=== PATIENT | male | born 1975 | race Caucasian/White ===

== ENCOUNTER → 2016-11-05 | Outpatient (CLI) | payer BC | LOC: MW.CHPM 10:33 | PROVIDERS: ATTEND Anesthesiology | DX: Z51.81 Encounter for therapeutic drug level monitoring (principal); Z79.891 Long term (current) use of opiate analgesic | CPT/HCPCS: 80305 ==

== ENCOUNTER 2017-07-09 11:44 | Emergency (ER) | payer BC ==
[2017-07-09] MEDS ORDERED: Sodium Chloride 0.9% 10 ML Syringe FLUSH PRN (12:30)
[2017-07-09] MEDS ORDERED: Sodium Chloride 0.9% 2.5 ML Syringe FLUSH PRN (12:30)
[2017-07-09] MEDS ORDERED: Ketorolac 30 MG/ML SDV IVPUSH ONE (12:30)
--- NOTE | 2017-07-09 12:41 | EDM.PDOC ---
ED HPI GENERAL MEDICAL PROBLEM - General Chief Complaint: Genitourinary Problem Stated Complaint: RIGHT LOWER BACK PAIN Time Seen by Provider: 07/09/17 12:20 Source of Information: Reports: Patient History Limitations: Reports: No Limitations - History of Present Illness INITIAL COMMENTS - FREE TEXT/NARRATIVE: HISTORY AND PHYSICAL: History of present illness: [He comes to the emergency room complaining of right-sided low back pain. He has a long history of chronic low back pain and 8 previous surgeries to his spine. He has a spinal nerve stimulator and the battery pack is located to his right low back. Pain began on Friday and he increased his stimulator without relief of symptoms. The pain woke him up suddenly at 2 AM this morning and has continued throughout today. The pain is constant and is radiating from his right low back around to his right lower quadrant. He rates the pain at a consistent 7-8 out of 10. He is under the care of Dr. Gudino for pain management. He denies nausea and vomiting. He's noticed cloudiness to his urine but no blood. He does not have any burning with urination or urinary frequency. He's had some loose stools over the past couple of days as well as a gurgling in his abdomen but no significant pain. ] Review of systems: As per history of present illness and below otherwise all systems reviewed and negative. Past medical history: As per history of present illness and as reviewed below otherwise noncontributory. Surgical history: As per history of present illness and as reviewed below otherwise noncontributory. Social history: No reported history of drug or alcohol abuse. Family history: As per history of present illness and as reviewed below otherwise noncontributory. Physical exam: HEENT: Atraumatic, normocephalic. Lungs: Clear to auscultation, breath sounds equal bilaterally. Heart: S1S2, regular rate and rhythm. Abdomen: Bowel sounds are normoactive throughout. Soft, nondistended, nontender. No masses guarding or rebound. Is tender with palpation over right flank. Pelvis: Stable nontender. Genitourinary: Deferred. Rectal: Deferred. Extremities: Atraumatic, negative for cords or calf pain. Neurovascular unremarkable. Neuro: Awake, alert, oriented. Motor and sensory unremarkable throughout. Exam nonfocal. Diagnostics: [CBC, CMP, urinalysis, CT abdomen and pelvis with contrast] Therapeutics: [Toradol 30 mg IV] Impression: [Right low back pain] Plan: [White blood count 14.32, urinalysis shows glucose in 0-2 red blood cells and 0- 1 white blood cells. CMP is unremarkable. CT abdomen and pelvis shows no acute findings. Recommend that patient follow up with Dr. Gudino regarding his right low back pain, stomach virus may be causing his loose stools as well as his elevated white count. Recommend he push fluids and follow-up with his local PCP. Strict return precautions are reviewed. He is in agreement with today's plan.] Definitive disposition and diagnosis as appropriate pending reevaluation and review of above. Right Flank Pain Score (Numeric/FACES): 8 - Related Data Allergies Allergy/AdvReac Type Severity Reaction Status Date / Time No Known Allergies Allergy Verified 07/09/17 11:58 Home Meds: Home Meds Hydrocodone/Acetaminophen [Hydrocodon-Acetaminophn 10-325] 1 tab PO Q6H PRN [History] Albuterol [Proair HFA] 1 puff INH Q4H PRN 05/16/15 [History] amLODIPine [Norvasc] 10 mg PO DAILY 05/16/15 [History] ClonazePAM [KlonoPIN] 1 tab PO TID PRN 09/18/15 [History] Past Medical History HEENT History: Reports: None Cardiovascular History: Reports: Hypertension Respiratory History: Reports: Asthma Genitourinary History: Reports: None Musculoskeletal History: Reports: Back Pain, Chronic Neurological History: Reports: Other (See Below) Other Neuro History: spinal cord stimulator Psychiatric History: Reports: Depression Endocrine/Metabolic History: Reports: None Hematologic History: Reports: None Immunologic History: Reports: None Oncologic (Cancer) History: Reports: None Dermatologic History: Reports: None - Infectious Disease History Infectious Disease History: Reports: Chicken Pox - Past Surgical History HEENT Surgical History: Reports: Tonsillectomy GI Surgical History: Reports: Appendectomy Musculoskeletal Surgical History: Reports: Arthroscopic Knee Social & Family History - Family History Family Medical History: Noncontributory Cardiac: Reports: CAD Endocrine/Metabolic: Reports: Diabetes, Type I - Tobacco Use Smoking Status *Q: Never Smoker Years of Tobacco use: 20 Packs/Tins Daily: 1 Second Hand Smoke Exposure: No - Caffeine Use Caffeine Use: Reports: Soda - Recreational Drug Use Recreational Drug Use: No ED ROS GENERAL - Review of Systems Review Of Systems: ROS reveals no pertinent complaints other than HPI. ED EXAM, RENAL/ - Physical Exam Exam: See Below Course - Vital Signs Last Recorded V/S: Last Vital Signs Temp 98.1 F 07/09/17 14:43 Pulse 55 L 07/09/17 14:43 Resp 18 07/09/17 14:43 BP 155/100 H 07/09/17 14:43 Pulse Ox 98 07/09/17 14:43 - Orders/Labs/Meds Orders: Active Orders 24 hr Category Date Time Status Sodium Chloride 0.9% [Saline Flush] Med 07/09/17 12:30 Active 10 ml FLUSH ASDIRECTED PRN Sodium Chloride 0.9% [Saline Flush] Med 07/09/17 12:30 Active 2.5 ml FLUSH ASDIRECTED PRN Saline Lock Insert [OM.PC] Stat Oth 07/09/17 12:30 Ordered Medication Orders Sodium Chloride (Saline Flush) 10 ml FLUSH ASDIRECTED PRN PRN Reason: Keep Vein Open Sodium Chloride (Saline Flush) 2.5 ml FLUSH ASDIRECTED PRN PRN Reason: Keep Vein Open Labs: Laboratory Tests 07/09/17 07/09/17 07/09/17 Range/Units 11:53 12:43 12:43 WBC 14.32 H (4.0-11.0) K/uL RBC 4.62 (4.50-5.90) M/uL Hgb 14.4 (13.0-17.0) g/dL Hct 40.6 (38.0-50.0) % MCV 87.9 (80.0-98.0) fL MCH 31.2 (27.0-32.0) pg MCHC 35.5 (31.0-37.0) g/dL RDW Std Deviation 38.7 (28.0-62.0) fl RDW Coeff of Anel 12 (11.0-15.0) % Plt Count 238 (150-400) K/uL MPV 9.50 (7.40-12.00) fL Neut % (Auto) 81.4 H (48.0-80.0) % Lymph % (Auto) 9.9 L (16.0-40.0) % [place] % (Auto) 6.2 (0.0-15.0) % Eos % (Auto) 2.2 (0.0-7.0) % Baso % (Auto) 0.3 (0.0-1.5) % Neut # (Auto) 11.7 H (1.4-5.7) K/uL Lymph # (Auto) 1.4 (0.6-2.4) K/uL [place] # (Auto) 0.9 H (0.0-0.8) K/uL Eos # (Auto) 0.3 (0.0-0.7) K/uL Baso # (Auto) 0.0 (0.0-0.1) K/uL Sodium 141 (136-146) mmol/L Potassium 3.5 (3.5-5.1) mmol/L Chloride 108 (98-110) mmol/L Carbon Dioxide 24 (21-31) mmol/L BUN 8 (6.0-23.0) mg/dL Creatinine 0.7 (0.6-1.5) mg/dL Est Cr Clr Drug Dosing 138.88 mL/min Estimated GFR (MDRD) > 60.0 ml/min Glucose 103 (60-110) mg/dL Calcium 8.9 (8.8-10.8) mg/dL Total Bilirubin 1.8 H (0.1-1.5) mg/dL AST 11 (5-40) IU/L ALT 16 (8-54) IU/L Alkaline Phosphatase 70 (40-150) Total Protein 6.5 (6.0-8.0) g/dL Albumin 4.3 (3.5-5.0) g/dL Globulin 2.2 (2.0-3.5) g/dL Albumin/Globulin Ratio 2.0 (1.3-2.8) Urine Color YELLOW Urine Appearance CLOUDY Urine pH 7.0 (5.0-8.0) Ur Specific Jeffrey 1.020 (1.001-1.035) Urine Protein NEGATIVE (NEGATIVE) mg/dL Urine Glucose (UA) 100 H (NEGATIVE) mg/dL Urine Ketones NEGATIVE (NEGATIVE) mg/dL Urine Occult Blood NEGATIVE (NEGATIVE) Urine Nitrite NEGATIVE (NEGATIVE) Urine Bilirubin NEGATIVE (NEGATIVE) Urine Urobilinogen 0.2 (<2.0) EU/dL Ur Leukocyte Esterase NEGATIVE (NEGATIVE) Urine RBC 0-2 (0-2/HPF) Urine WBC 0-1 (0-5/HPF) Ur Epithelial Cells RARE (NONE-FEW) Amorphous Sediment HEAVY (NEGATIVE) Urine Bacteria RARE (NEGATIVE) Urine Mucus LIGHT (NONE-MOD) Meds: Medications Generic Name Dose Route Start Last Admin Trade Name Freq PRN Reason Stop Dose Admin Sodium Chloride 10 ml 07/09/17 12:30 Saline Flush FLUSH ASDIRECTED PRN Keep Vein Open Sodium Chloride 2.5 ml 07/09/17 12:30 Saline Flush FLUSH ASDIRECTED PRN Keep Vein Open Discontinued Medications Generic Name Dose Route Start Last Admin Trade Name Freq PRN Reason Stop Dose Admin Iopamidol 100 ml 07/09/17 14:04 07/09/17 14:05 Isovue Multipack-370 (76%) IVPUSH 07/09/17 14:05 90 ml ONETIME STA Administration Ketorolac Tromethamine 30 mg 07/09/17 12:30 07/09/17 12:41 Toradol IVPUSH 07/09/17 12:31 30 mg ONETIME ONE Administration Departure - Departure Time of Disposition: 14:40 Disposition: Home, Self-Care 01 Condition: Good Clinical Impression: Low back pain - Discharge Information Instructions: Back Pain, Adult Referrals: Luis Singh DO [Primary Care Provider] - Forms: ED Department Discharge Additional Instructions: The following information is given to patients seen in the emergency department who are being discharged to home. This information is to outline your options for follow-up care. We provide all patients seen in our emergency department with a follow-up referral. The need for follow-up, as well as the timing and circumstances, are variable depending upon the specifics of your emergency department visit. If you don't have a primary care physician on staff, we will provide you with a referral. We always advise you to contact your personal physician following an emergency department visit to inform them of the circumstance of the visit and for follow-up with them and/or the need for any referrals to a consulting specialist. The emergency department will also refer you to a specialist when appropriate. This referral assures that you have the opportunity for follow-up care with a specialist. All of these measure are taken in an effort to provide you with optimal care, which includes your follow-up. Under all circumstances we always encourage you to contact your private physician who remains a resource for coordinating your care. When calling for follow-up care, please make the office aware that this follow-up is from your recent emergency room visit. If for any reason you are refused follow-up, please contact the [facility] emergency department at and asked to speak to the emergency department charge nurse. [facility] [address] [place] [id number] Follow-up with your local primary care provider at the clinic listed above in 48 -72 hours. Continue to monitor symptoms. Return to ER as needed as discussed. - My Orders Last 24 Hours: My Active Orders 07/09/17 12:30 Sodium Chloride 0.9% [Saline Flush] 10 ml FLUSH ASDIRECTED PRN Sodium Chloride 0.9% [Saline Flush] 2.5 ml FLUSH ASDIRECTED PRN Saline Lock Insert [OM.PC] Stat - Assessment/Plan Last 24 Hours: My Active Orders 07/09/17 12:30 Sodium Chloride 0.9% [Saline Flush] 10 ml FLUSH ASDIRECTED PRN Sodium Chloride 0.9% [Saline Flush] 2.5 ml FLUSH ASDIRECTED PRN Saline Lock Insert [OM.PC] Stat
[2017-07-09 13:22] LABS: CHLORIDE,CL 108 mmol/L (98-110); SODIUM,NA 141 mmol/L (136-146)
[2017-07-09] MEDS ORDERED: Iopamidol 755 MG/ML 500 ML Multipack Bottle IVPUSH STA (14:04)
--- NOTE | 2017-07-09 14:22 | CT ---
CT of the abdomen and pelvis with contrast. HISTORY: Pain TECHNIQUE: Axial CT images were obtained of the abdomen and pelvis following administration of 91 mL of Isovue-370 in the right antecubital fossa without complication. Coronal and sagittal reconstructio ns obtained. Comparison: 05/09/2016. FINDINGS: There are a few tree-in-bud opacities within the right middle lobe. The liver, gallbladder, adrenal glands, and pancreas appear normal. No bulky retroperitoneal lymphade nopathy or abdominal ascites. Several splenic hypodensities are noted, grossly unchanged. The kidneys enhance and function symmetrically without evidence of obstructive uropathy. Renal cortic al cysts are noted. The large and small bowel are normal in caliber without evidence of obstruction. No focal pericolonic inflammation or stranding. Appendectomy. Spinal stimulator device is noted overlying the right poste rior flank. No pelvic lymphadenopathy or free pelvic fluid. Urinary bladder is normal. Moderate prost atomegaly. No suspicious osseous abnormalities identified. Posterior fusion changes noted from L4 to S1. IMPRESSION: 1. No acute findings within the abdomen or pelvis. 2. Mild to moderate prostatomegaly.
[2017-07-09 14:44] VITALS: BP 155/100
== END 2017-07-09 14:45 | disposition home or self-care (01) ==
LOC: MW.ED 11:44
DX: M54.5 Low back pain (principal); I10 Essential (primary) hypertension; Z79.899 Other long term (current) drug therapy
CPT/HCPCS: 36415; 74177; 80053; 81001; 85025; 96374; 99284; J1885; Q9967

== ENCOUNTER 2017-09-28 18:33 | Emergency (ER) | payer BC ==
--- NOTE | 2017-09-28 19:25 | EDM.PDOC ---
ED HPI GENERAL MEDICAL PROBLEM - General Chief Complaint: Drug or Alcohol Abuse Stated Complaint: opioode dependant Time Seen by Provider: 09/28/17 19:11 - History of Present Illness INITIAL COMMENTS - FREE TEXT/NARRATIVE: HISTORY AND PHYSICAL: History of present illness: The patient is a 41-year-old male with a long-standing history of chronic back pain for which she follows with our pain management clinic, Dr. De Souza, and who presents stating that he has been out of his [place] tens for the last 3 days and initially wanted to try to get off of them and has tried this in the past but says that the symptoms have been too strong and until he can see the pain management doctor he is requesting help. He has had intermittent vomiting and diarrhea, cold sweats, insomnia and abdominal cramping all of which are typical for his narcotic withdrawal. He is not passing out or blacking out and not having any chest pain or palpitations. He says that he has regular appointments with the pain clinic every 3 months and will contact them tomorrow to try to discuss potentially stopping these medications on a long-term basis. He says he is requesting help today to get through to an appointment with her. Review of systems: As per history of present illness and below otherwise all systems reviewed and negative. Past medical history: As per history of present illness and as reviewed below otherwise noncontributory. Surgical history: As per history of present illness and as reviewed below otherwise noncontributory. Social history: No reported history of drug or alcohol abuse. Family history: As per history of present illness and as reviewed below otherwise noncontributory. Physical exam: General: Well-developed well-nourished man who is nontoxic and vital signs are stable. He is awake alert and communicative to me and very cooperative. HEENT: Atraumatic, normocephalic, pupils reactive, negative for conjunctival pallor or scleral icterus, mucous membranes moist, throat clear, neck supple, nontender, trachea midline. Lungs: Clear to auscultation, breath sounds equal bilaterally, chest nontender. Heart: S1S2, regular rate and rhythm no overt murmurs Abdomen: Soft, nondistended, nontender. Slightly hyperactive bowel sounds Pelvis: Deferred Genitourinary: Deferred. Rectal: Deferred. Extremities: Atraumatic, negative for cords or calf pain. Neurovascular unremarkable. Neuro: Awake, alert, oriented. Cranial nerves II through XII unremarkable. Cerebellum unremarkable. Motor and sensory unremarkable throughout. Exam nonfocal. Diagnostics: [] Therapeutics: I discussed with the patient my limitations here in the ED and that he will need to connect with the pain management doctor. I will give him some tools to help with the nausea vomiting and diarrhea and will give him a few of his pain pills until he can discuss his situation and his wishes with the pain management physician. He says he feels comfortable with this care plan and will call her first thing in the morning. The patient was offered IV fluids and IV medication and he defers this time for oral meds Impression: Subjective mild opiate withdrawal with chronic pain history Definitive disposition and diagnosis as appropriate pending reevaluation and review of above. - Related Data Allergies Allergy/AdvReac Type Severity Reaction Status Date / Time No Known Allergies Allergy Verified 09/28/17 18:55 Home Meds: Home Meds Hydrocodone/Acetaminophen [Hydrocodon-Acetaminophn 10-325] 1 tab PO Q6H PRN [History] Albuterol [Proair HFA] 1 puff INH Q4H PRN 05/16/15 [History] amLODIPine [Norvasc] 10 mg PO DAILY 05/16/15 [History] ClonazePAM [KlonoPIN] 1 tab PO TID PRN 09/18/15 [History] Past Medical History HEENT History: Reports: None Cardiovascular History: Reports: Hypertension Respiratory History: Reports: Asthma Genitourinary History: Reports: None Musculoskeletal History: Reports: Back Pain, Chronic Neurological History: Reports: Other (See Below) Other Neuro History: spinal cord stimulator Psychiatric History: Reports: Depression Endocrine/Metabolic History: Reports: None Hematologic History: Reports: None Immunologic History: Reports: None Oncologic (Cancer) History: Reports: None Dermatologic History: Reports: None - Infectious Disease History Infectious Disease History: Reports: Chicken Pox - Past Surgical History HEENT Surgical History: Reports: Tonsillectomy GI Surgical History: Reports: Appendectomy Musculoskeletal Surgical History: Reports: Arthroscopic Knee Social & Family History - Family History Family Medical History: Noncontributory Cardiac: Reports: CAD Endocrine/Metabolic: Reports: Diabetes, Type I - Tobacco Use Smoking Status *Q: Never Smoker Years of Tobacco use: 20 Packs/Tins Daily: 1 Second Hand Smoke Exposure: No - Caffeine Use Caffeine Use: Reports: Other - Recreational Drug Use Recreational Drug Use: No ED ROS GENERAL - Review of Systems Review Of Systems: ROS reveals no pertinent complaints other than HPI. ED EXAM, GENERAL - Physical Exam Exam: See Below (See dictation) Course - Vital Signs Last Recorded V/S: Last Vital Signs Temp 36.3 C 09/28/17 19:01 Pulse 97 09/28/17 19:01 Resp 18 09/28/17 19:01 BP 143/86 H 09/28/17 19:01 Pulse Ox 96 09/28/17 19:01 Departure - Departure Time of Disposition: 19:23 Disposition: Home, Self-Care 01 Condition: Good Clinical Impression: Opiate withdrawal - Discharge Information Referrals: Luis Singh DO [Primary Care Provider] - Additional Instructions: The following information is given to patients seen in the emergency department who are being discharged to home. This information is to outline your options for follow-up care. We provide all patients seen in our emergency department with a follow-up referral. The need for follow-up, as well as the timing and circumstances, are variable depending upon the specifics of your emergency department visit. If you don't have a primary care physician on staff, we will provide you with a referral. We always advise you to contact your personal physician following an emergency department visit to inform them of the circumstance of the visit and for follow-up with them and/or the need for any referrals to a consulting specialist. The emergency department will also refer you to a specialist when appropriate. This referral assures that you have the opportunity for followup care with a specialist. All of these measure are taken in an effort to provide you with optimal care, which includes your followup. Under all circumstances we always encourage you to contact your private physician who remains a resource for coordinating your care. When calling for followup care, please make the office aware that this follow-up is from your recent emergency room visit. If for any reason you are refused follow-up, please contact the [facility] emergency department at and ask to speak to the emergency department charge nurse [facility] Specialty care-Pain management clinic [address] [place] [id number] [facility] Primary care- Internal Medicine and Family [place] [phone] Please call the clinic first thing in the morning to schedule a follow-up appointment with pain management as we discussed. Use medications you have been given [facility], Zofran dicyclomine and [place] as directed. Return to ER as needed and as discussed
[2017-09-29 02:35] VITALS: BP 137/86
== END 2017-09-28 19:38 | disposition home or self-care (01) ==
LOC: MW.ED 18:33
DX: F11.23 Opioid dependence with withdrawal (principal); I10 Essential (primary) hypertension; F32.9 Major depressive disorder, single episode, unspecified; J45.909 Unspecified asthma, uncomplicated; Z79.899 Other long term (current) drug therapy
CPT/HCPCS: 99282; 99283

== ENCOUNTER 2020-11-10 16:22 | Emergency (ER) | payer SELFPAY ==
[2020-11-10] MEDS ORDERED: Acetaminophen/HYDROcodone 325-10 MG Tab PO ONE (16:52)
[2020-11-10] MEDS ORDERED: Dexamethasone 4 MG Tab PO ONE (16:52)
[2020-11-10 16:54] VITALS: BP 138/87; PULSE 106
--- NOTE | 2020-11-10 17:39 | CR ---
INDICATION: Spinal stimulator evaluation. TECHNIQUE: Thoracic spine, 2 views. COMPARISON: Thoracic spine radiographs 07/22/2017. FINDINGS: There are 12 rib-bearing thoracic type vertebral bodies. No acute fracture identified. Chronic anterior wedging of a few lower thoracic vertebral bodies. Normal vertebral body alignment. Spinal stimulator leads at the level of T7 similar to prior exam. No obvious discontinuity of the leads identified. The visualized lungs are clear. Soft tissues are unremarkable. IMPRESSION: 1. No acute findings. 2. Spinal stimulator leads at the level of T7 similar to prior exam. Dictated by Iraida Fraser MD @ 11/10/2020 5:37:[address] Iraida Fraser @ Nov 10 2020 5:37PM
--- NOTE | 2020-11-10 18:44 | EDM.PDOC ---
ED HPI GENERAL MEDICAL PROBLEM - General Chief Complaint: Back Pain or Injury Stated Complaint: BACK PAIN Time Seen by Provider: 11/10/20 16:46 - History of Present Illness INITIAL COMMENTS - FREE TEXT/NARRATIVE: CHIEF COMPLAINT(S): Back pain HISTORY OF PRESENT ILLNESS: This is a 44-year-old man with a past medical history of chronic back pain with multiple surgeries who has a spinal stimulator for pain relief who comes to the emergency department with a chief complaint of back pain. The patient states that he was seeing Dr. Gudino in 2016 who prescribed a spinal stimulator and had it placed by Dr. Peña at [facility] in [facility]. He states that he just recently got insurance yesterday and over the last 1 to 2 weeks he has been experiencing worsening pain on his right side and describes it as a shock and cramp. He rates his pain as 10 out of 10. He denies any bowel incontinence, urinary incontinence, fever, chills. He denies any drug use. He states that he took his last [place] approximately 2 days ago and was on Lyrica prior to this however given insurance he has been unable to refill these medications. He states that he also feels like the stimulator is not in the appropriate place and has had dislodgment from prior stimulator by [facility]. He states that the pain is exacerbated by movement. He denies any relieving factors. He denies any radiation of this pain. REVIEW OF SYSTEMS: Constitutional: Denies fever, chills. Eyes: Denies eye pain Ears, Nose, Mouth, & Throat: Denies earache Cardiovascular: Denies chest pain Respiratory: Denies shortness of breath Gastrointestinal: Denies Nausea, vomiting, diarrhea, hematochezia. Genitourinary: Denies hematuria Skin:Denies a rash MSK: Positive for back pain Neurological: Denies blurred vision, numbness, tingling, weakness, bowel incontinence, urinary incontinence, trouble walking, speaking, swallowing Psychiatric: Denies depression PAST MEDICAL HISTORY: As per history of present illness and as reviewed below otherwise noncontributory. SURGICAL HISTORY: As per history of present illness and as reviewed below otherwise noncontributory. SOCIAL HISTORY: As per history of present illness and as reviewed below otherwise noncontributory. FAMILY HISTORY: As per history of present illness and as reviewed below otherwise noncontributory. EXAMINATION OF ORGAN SYSTEMS/BODY AREAS: Constitutional: Blood pressure was 138/87, heart rate 106, respiratory rate 18 with an oxygen saturation 96% on room air. Temperature 36.3 General: Middle-aged man who does not appear to be in acute distress Psychiatric: Appropriate mood and affect. Eyes: No scleral icterus or conjunctival erythema ENMT: Moist mucous membranes. No pharyngeal erythema Cardiovascular: Regular, rate, and rhythm. No gallops, murmurs, or rubs. Bilateral upper extremity pulses symmetric and intact. No peripheral edema. No JVD. Respiratory: Lungs clear to auscultation bilaterally. No wheezes, rales, or rhonchi. Gastrointestinal: Soft, non-tender, non-distended. Normoactive bowel sounds Genitourinary: No suprapubic tenderness Musculoskeletal: Normal range of motion. There was no midline thoracic, lumbar, or cervical tenderness. There is no tenderness eggs at all on examination. Negative straight leg test. Skin: No lesions or abrasions. Neurological: Alert, GCS 15 strength and sensation grossly intact in upper and lower extremities bilaterally MEDICAL DECISION MAKING AND COURSE IN THE ED WITH INTERPRETATION/REVIEW OF DIAGNOSTIC STUDIES: This is a 44-year-old man and with a past medical history of multiple back surgeries with chronic back pain who has a spinal stimulator in place which was placed in 2016 who just recently had insurance and is out of his Lyrica and [place] who comes to the emergency department with exacerbation of his back pain with a normal neurological examination with concern for possible stimulator dislodgment. At this time we will obtain a thoracic spine x-ray to evaluate for placement. We will provide the patient with [place] and dexamethasone. I do not believe any labs or other imaging are indicated. The radiological images were viewed by myself along with reading the report from the radiologist. Thoracic spine x-ray reveals no acute findings. The spinal stimulator leads are at the level of T7 similar to prior examination. On reevaluation I did discuss results with the patient. I discussed with him at this time that he be stable for discharge. I did give the patient strict return precautions. I did provide the patient with a [place] prescription for the next 3 days however encourage the patient to set up an appoint with primary care physician for referral to pain management. He was amenable discharge at this time and had no further questions DISPOSITION: The patient was discharged home in stable condition. The patient will follow up with primary care physician in 3 days CONDITION: Fair PROCEDURES: None FINAL IMPRESSION(S)/DIAGNOSES: 1. Acute on chronic back pain Apollo Gallo M.D. back Pain Score (Numeric/FACES): 8 - Related Data Allergies Allergy/AdvReac Type Severity Reaction Status Date / Time No Known Allergies Allergy Verified 09/28/17 18:55 Home Meds: Home Meds Hydrocodone/Acetaminophen [Hydrocodon-Acetaminophn 10-325] 1 tab PO Q6H PRN 04/11/15 [History] Albuterol [Proair HFA] 1 puff INH Q4H PRN 05/16/15 [History] amLODIPine [Norvasc] 10 mg PO DAILY 05/16/15 [History] ClonazePAM [KlonoPIN] 1 tab PO TID PRN 09/18/15 [History] Past Medical History HEENT History: Reports: None Cardiovascular History: Reports: Hypertension Respiratory History: Reports: Asthma Genitourinary History: Reports: None Musculoskeletal History: Reports: Back Pain, Chronic Neurological History: Reports: Other (See Below) Other Neuro History: spinal cord stimulator Psychiatric History: Reports: Depression Endocrine/Metabolic History: Reports: None Hematologic History: Reports: None Immunologic History: Reports: None Oncologic (Cancer) History: Reports: None Dermatologic History: Reports: None - Infectious Disease History Infectious Disease History: Reports: Chicken Pox - Past Surgical History HEENT Surgical History: Reports: Tonsillectomy GI Surgical History: Reports: Appendectomy Other Neurological Surgeries/Procedures: bone stimulator Musculoskeletal Surgical History: Reports: Arthroscopic Knee Other Musculoskeletal Surgeries/Procedures:: multiple ashish knee surgeries related to injuries Social & Family History - Family History Family Medical History: No Pertinent Family History Cardiac: Reports: CAD Endocrine/Metabolic: Reports: Diabetes, Type I - Tobacco Use Tobacco Use Status *Q: Never Tobacco User - Caffeine Use Caffeine Use: Reports: Other - Recreational Drug Use Recreational Drug Use: No ED ROS GENERAL - Review of Systems Review Of Systems: See Below ED EXAM, GENERAL - Physical Exam Exam: See Below Course - Vital Signs Last Recorded V/S: Last Vital Signs Temp 36.3 C 11/10/20 16:51 Pulse 106 H 11/10/20 16:51 Resp BP 138/87 11/10/20 16:51 Pulse Ox 96 11/10/20 16:51 - Orders/Labs/Meds Meds: Medications Discontinued Medications Generic Name Dose Route Start Last Admin Trade Name Gurpreet PRN Reason Stop Dose Admin Hydrocodone Bitart/Acetaminophen 1 tab 11/10/20 16:52 11/10/20 17:26 Acetaminophen/Hydrocodone 325-10 Mg Tab PO 11/10/20 16:53 1 tab ONETIME ONE Administration Dexamethasone 8 mg 11/10/20 16:52 11/10/20 17:26 Dexamethasone 4 Mg Tab PO 11/10/20 16:53 8 mg ONETIME ONE Administration Departure - Departure Time of Disposition: 18:43 Disposition: Home, Self-Care 01 Condition: Fair Clinical Impression: Back pain - Discharge Information *PRESCRIPTION DRUG MONITORING PROGRAM REVIEWED*: No *COPY OF PRESCRIPTION DRUG MONITORING REPORT IN PATIENT ROSAURA: No Instructions: Back Injury Prevention, [id number], Chronic Back Pain Referrals: PCP,None [Primary Care Provider] - Forms: ED Department Discharge Additional Instructions: You evaluate today on an emergent basis. At this time I do believe that this is an exacerbation of your chronic pain. I did discuss with you that I would provide you with a [place] prescription short-term however you need to follow-up with a primary care physician or pain clinic for further medications. Again I recommend that you contact your insurance if you do not want a pain specialist here in [place]. Otherwise please follow-up with primary care within 3 to 4 days and they can refer you. If you have any worsening symptoms such as urinating on yourself, defecating on yourself, fever please return to the emergency department. [facility] [address] [place] [address] [id number] [address] [id number] The patient is informed of any results of their evaluation and diagnostic workup and all questions are answered. They are given discharge instructions and return precautions. The patient is stable for discharge. The patient states they understand and agree with the plan and that they will return if their symptoms get worse or if they have any new concerns. The following information is given to patients seen in the emergency department who are being discharged to home. This information is to outline your options for follow-up care. We provide all patients seen in our emergency department with a follow-up referral. The need for follow-up, as well as the timing and circumstances, are variable depending upon the specifics of your emergency department visit. If you don't have a primary care physician on staff, we will provide you with a referral. We always advise you to contact your personal physician following an emergency department visit to inform them of the circumstance of the visit and for follow-up with them and/or the need for any referrals to a consulting specialist. The emergency department will also refer you to a specialist when appropriate. This referral assures that you have the opportunity for follow-up care with a specialist. All of these measure are taken in an effort to provide you with optimal care, which includes your follow-up. Under all circumstances we always encourage you to contact your private physician who remains a resource for coordinating your care. When calling for follow-up care, please make the office aware that this follow-up is from your recent emergency room visit. If for any reason you are refused follow-up, please contact the [facility] Emergency Department at and asked to speak to the emergency department charge nurse. Sepsis Event Note (ED) - Evaluation Sepsis Screening Result: No Definite Risk - Focused Exam Vital Signs: Vital Signs Temp Pulse BP Pulse Ox 11/10/20 16:51 36.3 C 106 H 138/87 96
== END 2020-11-10 19:06 | disposition home or self-care (01) ==
LOC: MW.ED 16:22
DX: M54.6 Pain in thoracic spine (principal); G89.29 Other chronic pain
CPT/HCPCS: 72070; 99283; A9270; J8540

== ENCOUNTER 2021-01-28 15:49 | Emergency (ER) | payer SELFPAY ==
[2021-01-28 16:09] VITALS: BP 180/109; PULSE 82
--- NOTE | 2021-01-28 16:11 | EDM.PDOC ---
ED HPI GENERAL MEDICAL PROBLEM - General Chief Complaint: General Stated Complaint: MEDICAL CLEARANCE Time Seen by Provider: 01/28/21 15:52 Source of Information: Reports: Patient History Limitations: Reports: No Limitations - History of Present Illness INITIAL COMMENTS - FREE TEXT/NARRATIVE: 45-year-old male past medical history asthma, hypertension, chronic pain, multiple back and knee surgeries presents for medical clearance for incarceration. Patient has no complaints at this time. He states he was told he had to come to the emergency department because of his past medical history. Patient is compliant with his medications. Denies chest pain, shortness of breath. - Related Data Allergies Allergy/AdvReac Type Severity Reaction Status Date / Time No Known Allergies Allergy Verified 09/28/17 18:55 Home Meds: Home Meds Hydrocodone/Acetaminophen [Hydrocodon-Acetaminophn 10-325] 1 tab PO Q6H PRN 04/11/15 [History] Albuterol [Proair HFA] 1 puff INH Q4H PRN 05/16/15 [History] amLODIPine [Norvasc] 10 mg PO DAILY 05/16/15 [History] ClonazePAM [KlonoPIN] 1 tab PO TID PRN 09/18/15 [History] Past Medical History HEENT History: Reports: None Cardiovascular History: Reports: Hypertension Respiratory History: Reports: Asthma Genitourinary History: Reports: None Musculoskeletal History: Reports: Back Pain, Chronic Neurological History: Reports: Other (See Below) Other Neuro History: spinal cord stimulator Psychiatric History: Reports: Depression Endocrine/Metabolic History: Reports: None Hematologic History: Reports: None Immunologic History: Reports: None Oncologic (Cancer) History: Reports: None Dermatologic History: Reports: None - Infectious Disease History Infectious Disease History: Reports: Chicken Pox - Past Surgical History HEENT Surgical History: Reports: Tonsillectomy GI Surgical History: Reports: Appendectomy Other Neurological Surgeries/Procedures: bone stimulator Musculoskeletal Surgical History: Reports: Arthroscopic Knee Other Musculoskeletal Surgeries/Procedures:: multiple ashish knee surgeries related to injuries Social & Family History - Family History Family Medical History: No Pertinent Family History Cardiac: Reports: CAD Endocrine/Metabolic: Reports: Diabetes, Type I - Caffeine Use Caffeine Use: Reports: Other ED ROS GENERAL - Review of Systems Review Of Systems: Comprehensive ROS is negative, except as noted in HPI. ED EXAM, GENERAL - Physical Exam Exam: See Below Exam Limited By: No Limitations General Appearance: Alert, WD/WN, No Apparent Distress Ears: Hearing Grossly Normal Throat/Mouth: Normal Voice, No Airway Compromise Head: Atraumatic, Normocephalic Neck: Normal Inspection Respiratory/Chest: No Respiratory Distress, Lungs Clear, Normal Breath Sounds, N o Accessory Muscle Use Cardiovascular: Normal Peripheral Pulses, Regular Rate, Rhythm Extremities: Normal Inspection Neurological: Alert, Normal Cognition, Normal Gait Psychiatric: Normal Affect, Normal Mood Skin Exam: Warm, Dry, Intact, Normal Color Course - Vital Signs Last Recorded V/S: Last Vital Signs Temp 98.6 F 01/28/21 16:01 Pulse 82 01/28/21 16:01 Resp 85 H 01/28/21 16:01 BP 180/109 H 01/28/21 16:01 Pulse Ox 98 01/28/21 16:01 - Re-Assessments/Exams Free Text/Narrative Re-Assessment/Exam: 01/28/21 16:10 Patient is noted to be hypertensive, patient states that this is actually better than his baseline, informed him to follow-up with his primary care physician if his blood pressures are typically running in this range. However I see nothing emergent that needs to be addressed at this time. Patient understands. Patient is medically cleared for incarceration. Departure - Departure Time of Disposition: 16:11 Disposition: Home, Self-Care 01 Condition: Good Clinical Impression: Encounter for medical screening examination - Discharge Information Instructions: Medical Screening Exam Referrals: Glenn Perkins MD [Primary Care Provider] - Additional Instructions: The following information is given to patients seen in the emergency department who are being discharged to home. This information is to outline your options for follow-up care. We provide all patients seen in our emergency department with a follow-up referral. The need for follow-up, as well as the timing and circumstances, are variable depending upon the specifics of your emergency department visit. If you don't have a primary care physician on staff, we will provide you with a referral. We always advise you to contact your personal physician following an emergency department visit to inform them of the circumstance of the visit and for follow-up with them and/or the need for any referrals to a consulting specialist. The emergency department will also refer you to a specialist when appropriate. This referral assures that you have the opportunity for follow-up care with a specialist. All of these measure are taken in an effort to provide you with optimal care, which includes your follow-up. Under all circumstances we always encourage you to contact your private physician who remains a resource for coordinating your care. When calling for follow-up care, please make the office aware that this follow-up is from your recent emergency room visit. If for any reason you are refused follow-up, please contact the [facility] Emergency Department at and asked to speak to the emergency department charge nurse. Please follow up with your primary care physician. If you do not have a primary care physician, see below: [facility] [address] [place] [id number] [facility] [address] [place] [id number] [facility] [address] [place] [id number] Sepsis Event Note (ED) - Evaluation Sepsis Screening Result: No Definite Risk - Focused Exam Vital Signs: Vital Signs Temp Pulse Resp BP Pulse Ox 01/28/21 16:01 98.6 F 82 85 H 180/109 H 98
== END 2021-01-28 16:17 ==
LOC: MW.ED 15:49
DX: Z02.89 Encounter for other administrative examinations (principal); I10 Essential (primary) hypertension; J45.909 Unspecified asthma, uncomplicated; Z79.899 Other long term (current) drug therapy
CPT/HCPCS: 99283

== ENCOUNTER 2022-01-08 18:58 | Emergency (ER) | payer OTHER ==
[2022-01-08] MEDS ORDERED: Sodium Chloride 0.9% 10 ML Syringe FLUSH PRN (20:41)
[2022-01-08] MEDS ORDERED: Sodium Chloride 0.9% 2.5 ML Syringe FLUSH PRN (20:41)
[2022-01-08] MEDS ORDERED: Morphine 4 MG/ML VIAL IVPUSH ONE ×2 (20:42→22:52)
[2022-01-08] MEDS ORDERED: Ondansetron 4 MG/2 ML SDV IVPUSH ONE (20:42)
[2022-01-08 21:59] LABS: CARBON DIOXIDE,CO2 27.9 mmol/L (21.0-32.0); POTASSIUM,K 3.7 mmol/L (3.5-5.1)
[2022-01-08] MEDS ORDERED: Iopamidol 755 MG/ML 500 ML Multipack Bottle IVPUSH STA (22:41)
[2022-01-09] MEDS ORDERED: Ketorolac 30 MG/ML SDV IVPUSH ONE (00:38)
[2022-01-09 01:21] VITALS: BP 163/87; PULSE 77
== END 2022-01-09 00:56 | disposition home or self-care (01) ==
LOC: MW.ED 18:58
DX: G89.29 Other chronic pain (principal); M54.50 Low back pain, unspecified; J45.909 Unspecified asthma, uncomplicated; I10 Essential (primary) hypertension; Z79.899 Other long term (current) drug therapy; Z90.49 Acquired absence of other specified parts of digestive tract
CPT/HCPCS: 36415; 72130; 72133; 80053; 83690; 85025; 85652; 86140; 96374; 96375; 96376; 99283; J1885; J2270; J2405; J3490; Q9967

== ENCOUNTER 2022-07-10 11:57 | Emergency (ER) | payer SELFPAY ==
[2022-07-10] MEDS ORDERED: Ketorolac 30 MG/ML SDV IM ONE (12:31)
[2022-07-10 15:45] VITALS: BP 122/85; PULSE 89
== END 2022-07-10 15:44 | disposition home or self-care (01) ==
LOC: MW.ED 11:57
DX: M54.50 Low back pain, unspecified (principal); I10 Essential (primary) hypertension; W00.0XXA Fall on same level due to ice and snow, initial encounter
CPT/HCPCS: 72131; 81003; 96372; 99284; J1885; 99283

== ENCOUNTER 2022-07-16 19:55 | Emergency (ER) | payer OTHER ==
[2022-07-16] MEDS ORDERED: Diazepam 5 MG Tab PO ONE (20:27)
[2022-07-16 21:01] VITALS: BP 153/97; PULSE 88
== END 2022-07-16 21:02 | disposition home or self-care (01) ==
LOC: MW.ED 19:55
DX: M54.41 Lumbago with sciatica, right side (principal); I10 Essential (primary) hypertension
CPT/HCPCS: 99283; A9270

== ENCOUNTER 2022-07-17 02:57 | Emergency (ER) | payer OTHER ==
[2022-07-17] MEDS ORDERED: HYDROmorphone 1 MG/ML Syringe IM ONE ×2 (03:04→04:28)
[2022-07-17] MEDS ORDERED: Ketorolac 30 MG/ML SDV IM ONE (03:04)
[2022-07-17 04:39] VITALS: BP 167/97; PULSE 75
== END 2022-07-17 06:30 | disposition home or self-care (01) ==
LOC: MW.ED 02:57
DX: M54.50 Low back pain, unspecified (principal); I10 Essential (primary) hypertension
CPT/HCPCS: 96372; 99283; J1170; J1885

== ENCOUNTER 2022-10-16 21:55 | Emergency (ER) | payer OTHER ==
[2022-10-16] MEDS ORDERED: Albuterol 0.083% 2.5 MG/3 ML Neb Soln NEB ONE (22:18)
[2022-10-16] MEDS ORDERED: Albuterol 8 GM Inhaler INH ONE (22:28)
[2022-10-16 22:40] VITALS: BP 132/74; PULSE 68
== END 2022-10-16 22:39 | disposition home or self-care (01) ==
LOC: MW.ED 21:55
DX: J45.901 Unspecified asthma with (acute) exacerbation (principal); I10 Essential (primary) hypertension
CPT/HCPCS: 99282; A9270; 99283; J7620-GY